=== PATIENT | male | born 1935 | race Caucasian/White ===

== ENCOUNTER 2018-04-18 13:53 | Emergency (ER) | payer OTHER, MEDICARE ==
[~2018-04-18] VITALS: Ht 180.3 cm; Wt 69.2 kg
[2018-04-18 15:17] LABS: HEMATOCRIT 35.7 % (38.0-50.0); HEMOGLOBIN 12.1 G/DL (12.5-16.6); MCH 31.6 PG (29.0-34.0); MCHC 33.9 G/DL (30.0-36.0); MCV 93.2 FL (86-99); PLATELET COUNT 183 K/uL (156-360); RBC DIS.WIDTH-CV 12.3 % (11.8-14.6); RBC DIS.WIDTH-SD 42.3 % (39-53); RED BLOOD COUNT 3.83 M/uL (4.00-5.50); WHITE BLOOD COUNT 6.5 K/uL (4.1-10.2)
[2018-04-18 15:29] LABS: CHLORIDE 106 mEq/L (99-109); POTASSIUM 4.8 mEq/L (3.7-5.4); SODIUM 140 mEq/L (136-147)
[2018-04-18 15:31] LABS: GLUCOSE 146 mg/dL (70-99)
[2018-04-18 15:35] LABS: CREATININE 2.7 mg/dL (0.6-1.3); GFR ESTIMATE (CALCULATED) 24 mL/min/ (58.99-99999); UREA NITROGEN (BUN) 48 mg/dL (9-23)
[2018-04-18 18:31] VITALS: BP 129/64
== END 2018-04-18 18:30 | disposition home or self-care (01) ==
LOC: EME 13:53
DX: R55 Syncope and collapse (principal); I12.9 Hypertensive chronic kidney disease with stage 1 through stage 4 chronic kidney disease, or unspecified chronic kidney disease; N18.4 Chronic kidney disease, stage 4 (severe); G30.9 Alzheimer's disease, unspecified; F02.80 Dementia in other diseases classified elsewhere, unspecified severity, without behavioral disturbance, psychotic disturbance, mood disturbance, and anxiety; Z87.891 Personal history of nicotine dependence; Z88.8 Allergy status to other drugs, medicaments and biological substances
CPT/HCPCS: 71046; 80048; 82948; 85027; 93005; 99281; 99285; J7030